=== PATIENT | female | born 1930 | race Caucasian/White ===

== ENCOUNTER → 2020-07-26 | Outpatient (CLI) | payer MEDICARE, OTHER ==
[~2020-07-26] MED LIST: ASPI325T80 PO; CITA20TA6 PO; FENTANYL PATCH TP; HYDR-2442 PO; HYDR-3246 PO; LATA2.5D3 EACHEYE; LEVO50TA5 PO; LEVO75TA5 PO; METH2.5T PO; MULT-709 PO; PRED5TAB PO; PROBIOTIC PO; SENN1TAB67 PO; STOOL SOFTENER PO; VIT1CAPS11 PO; VITAMIN D PO; VOLTAREN GEL 1% TP
[2020-07-26 14:26] LABS: BASOPHILS % (AUTO) 1 % (0-1); EOSINOPHILS % (AUTO) 0 % (1-7); LYMPHOCYTES % (AUTO) 7 % (22-44); MEAN CORPUSCULAR HEMOGLOBIN 31.4 pg (27.0-34.8); MEAN CORPUSCULAR HGB CONC 32.7 g/dL (32.4-35.8); MONOCYTES % (AUTO) 3 % (2-9); NEUTROPHILS % (AUTO) 89 % (42-75); PLATELET COUNT 259 x10^3/uL (130-400); RED BLOOD COUNT 4.36 x10^6/uL (3.82-5.3); RED CELL DISTRIBUTION WIDTH 16.1 % (9.6-15.2)
[2020-07-26 14:39] LABS: CHLORIDE 108 mmol/L (98-107)
[2020-07-26 14:44] LABS: ANION GAP 8 mmol/L (5-15); CALCIUM 9.2 mg/dL (8.5-10.1)
[2020-07-26 14:52] LABS: MD NO
== END | disposition home or self-care (01) ==
LOC: STAR 12:53
PROVIDERS: ATTEND Orthopaedic Surgery
DX: Z01.818 Encounter for other preprocedural examination (principal); Z01.810 Encounter for preprocedural cardiovascular examination; M25.562 Pain in left knee; M17.12 Unilateral primary osteoarthritis, left knee; R00.0 Tachycardia, unspecified; Z20.828 Contact with and (suspected) exposure to other viral communicable diseases
CPT/HCPCS: 36415; 80048; 85025; 87081; 87635; 93005

== ENCOUNTER 2020-07-31 08:10 | Inpatient (IN) | payer MEDICARE, OTHER ==
[~2020-07-31] VITALS: Ht 152.4 cm; Wt 66.6 kg
[~2020-07-31 08:10] MED LIST changes: +EPINEPHRINE 1 MG/ML, 1ML ONE; +KETOROLAC 60 MG/2 ML ONE; +ROPIvacaine/PF 0.2%, 20 ML ONE; +SODIUM CHLORIDE 0.9% 50 ML ONE; +TRANEXAMIC ACID 100 MG/ML, 10ML ONE; +VANCOMYCIN 1,000 MG ONE
[2020-07-31] MEDS ORDERED: CHLORHEXIDINE 15 ML UDC MM STA (08:41)
[2020-07-31] MEDS ORDERED: CHLORHEXIDINE 15 ML UDC ONE (08:59)
[2020-07-31] MEDS ORDERED: LACTATED RINGERS 1,000 ML IV SCH (09:00)
[2020-07-31] MEDS ORDERED: FENTANYL PF 250 MCG/5ML ONE (10:27)
[2020-07-31] MEDS ORDERED: hydrALAzine 20 MG/ML, 1ML IV PRN (11:00)
[2020-07-31] MEDS ORDERED: OXYcodone 5 MG/5 ML ORAL.SOL UDC PO PRN (11:00)
[2020-07-31] MEDS ORDERED: LORazepam 2 MG/ML, 1ML IVPush PRN (11:00)
[2020-07-31] MEDS ORDERED: HALOPERIDOL 5 MG/ML IV PRN (11:00)
[2020-07-31] MEDS ORDERED: ONDANSETRON 2MG/ML, 2ML IVPush PRN ×2 (11:00→13:00)
[2020-07-31] MEDS ORDERED: ACETAMINOPHEN 325 MG TABLET PO PRN (11:00)
[2020-07-31] MEDS ORDERED: LABETALOL 5MG/ML, 20ML IV PRN (11:00)
[2020-07-31] MEDS ORDERED: METHOCARBAMOL 1,000 MG in DEXTROSE 5% 100 ML IV PRN (11:00)
[2020-07-31] MEDS ORDERED: PROPOFOL 50 ML ONE (11:06)
[2020-07-31] MEDS ORDERED: FENTANYL PF 100 MCG/2ML ONE ×2 (12:21→13:10)
[2020-07-31] MEDS ORDERED: PROPOFOL 10 MG/ML, 20ML ONE (12:27)
[2020-07-31] MEDS ORDERED: DEXAMETHASONE 4 MG/ML, 1ML ONE ×2 (12:27)
[2020-07-31] MEDS ORDERED: ONDANSETRON 2MG/ML, 2ML ONE (12:27)
[2020-07-31] MEDS ORDERED: CEFAZOLIN 1,000 MG ONE (12:27)
[2020-07-31] MEDS ORDERED: HYDROmorphone 1 MG/ML, 1ML INJ ONE ×2 (12:52→13:30)
[2020-07-31] MEDS ORDERED: POLYETHYLENE GLYCOL 17 GM PACKET PO PRN (13:00)
[2020-07-31] MEDS ORDERED: MAGNESIUM HYDROXIDE 8%, 30ML UDC PO PRN (13:00)
[2020-07-31] MEDS ORDERED: PROMETHAZINE 12.5 MG SUPP PR PRN (13:00)
[2020-07-31] MEDS ORDERED: PROMETHAZINE 25 MG/ML, 1ML IM PRN (13:00)
[2020-07-31] MEDS ORDERED: ONDANSETRON 4 MG TABLET PO PRN (13:00)
[2020-07-31] MEDS ORDERED: BISACODYL 10 MG SUPP PR PRN (13:00)
[2020-07-31] MEDS ORDERED: DIPHENHYDRAMINE 50 MG/ML, 1ML IVPush PRN (13:00)
[2020-07-31] MEDS ORDERED: SENNA/DOCUSATE TABLET PO PRN (13:00)
[2020-07-31] MEDS ORDERED: DIPHENHYDRAMINE 50 MG CAPSULE PO PRN (13:00)
[2020-07-31] MEDS ORDERED: PSYLLIUM PACKET PO PRN (13:00)
[2020-07-31] MEDS ORDERED: TRANEXAMIC ACID 1,000 MG in SODIUM CHLORIDE 0.9% 100 ML IVPB ONE (13:00)
[2020-07-31] MEDS ORDERED: DIAZEPAM 5 MG TABLET PO PRN (13:00)
[2020-07-31] MEDS ORDERED: HYDROmorphone 1 MG/ML, 1ML INJ IVPush PRN (13:00)
[2020-07-31] MEDS ORDERED: ALUMINUM/MAG/SIMETHICONE 30 ML UDC PO PRN (13:00)
[2020-07-31] MEDS: FENTANYL PF 100 MCG/2ML IV PRN ×2 (13:10→13:20)
[2020-07-31] MEDS ORDERED: HYDROcodone/APAP 7.5-325MG/15ML UDC ONE (13:30)
[2020-07-31] MEDS: HYDROmorphone 1 MG/ML, 1ML INJ IVPush PRN ×2 (13:33→13:52)
[2020-07-31 14:35] VITALS: BP 154/69
[2020-07-31] MEDS: METHOTREXATE MC SCH (18:30)
[2020-07-31] MEDS: KETOROLAC 30 MG/1 ML IV SCH (18:49)
[2020-07-31] MEDS: SODIUM CHLORIDE 0.9% 1,000 ML IV SCH (18:49)
[2020-07-31 20:14] VITALS: BP 132/61
[2020-07-31] MEDS: DOCUSATE 100 MG CAPSULE PO SCH (20:35)
[2020-07-31] MEDS: ASPIRIN 81 MG TABLET EC PO SCH (20:35)
[2020-07-31] MEDS ORDERED: FENTANYL REMOVE PATCH NOTE XX SCH (21:00)
[2020-07-31] MEDS ORDERED: FENTANYL 12 MCG PATCH TD SCH (21:00)
[2020-07-31] MEDS: LATANOPROST OPHTH 0.005%, 2.5ML OP SCH (21:04)
[2020-07-31] MEDS: CEFAZOLIN PMX 1GM/50ML 50 ML IVPB SCH (21:04)
[2020-07-31] MEDS: HYDROcodone/APAP 10/325 MG TABLET PO PRN (21:37)
[2020-08-01 00:19] VITALS: BP 133/53
[2020-08-01] MEDS: SODIUM CHLORIDE 0.9% 1,000 ML IV SCH ×2 (02:20→15:40)
[2020-08-01] MEDS: KETOROLAC 30 MG/1 ML IV SCH ×2 (02:27→10:00)
[2020-08-01] MEDS: METHOTREXATE MC SCH (02:30)
[2020-08-01] MEDS: HYDROcodone/APAP 10/325 MG TABLET PO PRN ×4 (02:43→23:35)
[2020-08-01] MEDS: CEFAZOLIN PMX 1GM/50ML 50 ML IVPB SCH (04:36)
[2020-08-01 05:03] VITALS: BP 133/63
[2020-08-01] MEDS: LEVOTHYROXINE 75 MCG TABLET PO SCH (05:59)
[2020-08-01] MEDS ORDERED: DEXAMETHASONE 4 MG/ML, 1ML IVPush SCH (06:00)
[2020-08-01 07:31] VITALS: BP 148/58
[2020-08-01] MEDS: MULTIVITAMINS/MINERALS TABLET PO SCH (07:33)
[2020-08-01] MEDS: DOCUSATE 100 MG CAPSULE PO SCH ×2 (07:34→20:30)
[2020-08-01] MEDS: ASPIRIN 81 MG TABLET EC PO SCH ×2 (07:34→20:30)
[2020-08-01 14:02] VITALS: BP 143/71
[2020-08-01 20:05] VITALS: BP 157/68
[2020-08-01] MEDS: LATANOPROST OPHTH 0.005%, 2.5ML OP SCH (20:30)
[2020-08-02 01:40] VITALS: BP 155/57
[2020-08-02] MEDS: HYDROcodone/APAP 10/325 MG TABLET PO PRN ×2 (04:46→09:56)
[2020-08-02] MEDS: SODIUM CHLORIDE 0.9% 1,000 ML IV SCH (05:00)
[2020-08-02] MEDS: LEVOTHYROXINE 75 MCG TABLET PO SCH (06:37)
[2020-08-02 07:05] VITALS: BP 126/76
[2020-08-02] MEDS: MULTIVITAMINS/MINERALS TABLET PO SCH (09:51)
[2020-08-02] MEDS: DOCUSATE 100 MG CAPSULE PO SCH (09:51)
[2020-08-02] MEDS: ASPIRIN 81 MG TABLET EC PO SCH (09:51)
[2020-08-02 14:18] VITALS: BP 143/83
== END 2020-08-02 16:35 | DRG 470 ==
LOC: OUT 08:10 → ORIP 12:48 → 4NE 14:21 → OBSVTOIN 08-01 07:28
PROVIDERS: ADMIT Orthopaedic Surgery; ATTEND Orthopaedic Surgery
PROC: 0SRD0J9 Replacement of Left Knee Joint with Synthetic Substitute, Cemented, Open Approach (ICD-10-PCS; principal; 2020-07-31 11:15)
DX: M17.12 Unilateral primary osteoarthritis, left knee (principal)
CPT/HCPCS: 36415; 85014; 85018; C1713; G0378; J0171; J0690; J1100; J1170; J1885; J2405; J2704; J2795; J3010; J3370; C1776; J1200; J2800; J7030; J7120; J7512